=== PATIENT | male | born 1965 | race Asian ===

== ENCOUNTER 2022-06-04 18:09 | Emergency (ER) | payer OTHER ==
[~2022-06-04] VITALS: Ht 182.9 cm; Wt 89.8 kg
[2022-06-04 18:33] LABS: PLATELET COUNT 255 K/uL (142-355)
[2022-06-04 18:44] LABS: POTASSIUM 3.6 mmol/L (3.6-5.2)
[2022-06-04 19:01] LABS: PARTIAL THROMBOPLASTIN TIME 26.4 SECONDS (24.5-33.6)
[2022-06-04 22:50] VITALS: BP 154/98
== END 2022-06-04 22:50 | disposition home or self-care (01) ==
LOC: ED 18:09
PROVIDERS: Emergency Medicine
DX: I10 Essential (primary) hypertension (principal); R07.89 Other chest pain; F17.210 Nicotine dependence, cigarettes, uncomplicated
CPT/HCPCS: 36415; 80053; 80307; 81002; 82550; 83880; 84484; 85027; 85379; 85610; 85730; 93005; 96374; 96375; 99284; J0360; J2270; J2405